=== PATIENT | female | born 1955 | race Caucasian/White ===

== ENCOUNTER 2021-03-08 08:06 | Outpatient (CLI) | payer MEDICARE | END 2021-03-08 08:07 | disposition home or self-care (01) | LOC: CSHMAMMO 08:06 | PROVIDERS: ATTEND Family Medicine | DX: Z12.31 Encounter for screening mammogram for malignant neoplasm of breast (principal) | CPT/HCPCS: 77063; 77067 ==

== ENCOUNTER 2022-08-22 11:42 | Outpatient (CLI) | payer MEDICARE | END 2022-08-22 11:43 | disposition home or self-care (01) | LOC: CSHLAB 11:42 | PROVIDERS: ATTEND Specialist | DX: Z20.822 Contact with and (suspected) exposure to COVID-19 (principal) | CPT/HCPCS: 87811 ==

== ENCOUNTER 2023-04-03 08:04 | Outpatient (CLI) | payer MEDICARE | END 2023-04-03 08:05 | disposition home or self-care (01) | LOC: CSHMAMMO 08:04 | PROVIDERS: ATTEND Family Medicine | DX: Z12.31 Encounter for screening mammogram for malignant neoplasm of breast (principal) | CPT/HCPCS: 77063; 77067 ==

== ENCOUNTER 2024-02-08 12:55 | Emergency (ER) | payer MEDICARE ==
[2024-02-08 14:06] LABS: #Basophils 0.1 10x3/uL (0.0-0.2); #Eosinphils 0.4 10x3/uL (0.0-0.5); #Monocytes 0.7 10x3/uL (0.0-1.1); #Neutrophils 5.1 10x3/uL (1.5-8.4); %Basophils 0.8 % (0.0-2.0); %Eosinophils 4.7 % (0.0-6.0); %Lymphocytes 20.1 % (18.0-47.0); %Monocytes 8.8 % (0.0-10.0); %Neutrophils 65.3 % (40.0-75.0); Hematocrit 41.7 % (34.9-44.5); Hemoglobin 13.8 g/dL (12.0-15.5); Mean Corpuscular HGB CONC 33.1 g/dL (32.0-36.0); Mean Corpuscular Hemoglobin 30.3 pg (27.0-33.0); Mean Corpuscular Volume 91.6 fl (81.6-98.3); Platelet Count 298 10x3/uL (150-450); Red Blood Cell (RBC) Count 4.55 10x6/uL (3.90-5.03); White Blood Cell (WBC) Count 7.7 10x3/uL (3.5-10.5)
[2024-02-08 14:27] LABS: ALT (SGPT) 21 U/L (8-55); AST (SGOT) 22 U/L (5-34); Albumin 4.1 g/dL (3.4-4.8); Alkaline Phosphatase 75 U/L (40-110); Anion Gap 16 mmol/L (10-20); BUN (Urea Nitrogen) 18 mg/dL (9.8-20.1); Bilirubin, Total 1.2 mg/dL (0.2-1.2); Calc. Creatinine Clearance 0 mL/min (70-130); Calcium 9.9 mg/dL (7.8-10.44); Carbon Dioxide 27 mmol/L (23-31); Chloride 100 mmol/L (98-107); Estimated GFR 70; Globulin 2.9 g/dL (2.4-3.5); Glucose 108 mg/dL (80-115); Magnesium 1.9 mg/dL (1.6-2.6); Potassium 4.6 mmol/L (3.5-5.1); Sodium 138 mmol/L (136-145)
[2024-02-08 14:33] LABS: Troponin I Less than 0.010 ng/mL (< 0.028)
== END 2024-02-08 15:02 | disposition home or self-care (01) ==
LOC: CSHERS 12:55
DX: I48.0 Paroxysmal atrial fibrillation (principal); E11.9 Type 2 diabetes mellitus without complications; I10 Essential (primary) hypertension; Z55.6 Problems related to health literacy; Z79.899 Other long term (current) drug therapy; Z79.01 Long term (current) use of anticoagulants
CPT/HCPCS: 36415; 71045; 80053; 83735; 84484; 85025; 93005; 93010

== ENCOUNTER 2024-04-23 08:15 | Outpatient (CLI) | payer MEDICARE | END 2024-04-23 08:16 | disposition home or self-care (01) | LOC: CSHMAMMO 08:15 | PROVIDERS: ATTEND Family Medicine | DX: Z12.31 Encounter for screening mammogram for malignant neoplasm of breast (principal) | CPT/HCPCS: 77063; 77067 ==

== ENCOUNTER 2024-06-25 09:50 | Outpatient (CLI) | payer MEDICARE | END 2024-06-25 09:51 | disposition home or self-care (01) | LOC: CSHMAMMO 09:50 | PROVIDERS: ATTEND Family Medicine | DX: Z13.820 Encounter for screening for osteoporosis (principal); N95.8 Other specified menopausal and perimenopausal disorders | CPT/HCPCS: 77080 ==

== ENCOUNTER 2024-08-18 08:26 | Outpatient (CLI) | payer MEDICARE ==
[2024-08-18] MEDS ORDERED: Iopamidol 300 61% 100 ML VIAL FS ONE (11:29)
== END 2024-08-18 08:27 | disposition home or self-care (01) ==
LOC: CSHCT 08:26
PROVIDERS: ATTEND Family Medicine
DX: E83.52 Hypercalcemia (principal); K14.8 Other diseases of tongue
CPT/HCPCS: 36415; 70492; 82565

== ENCOUNTER 2024-12-22 07:06 | Outpatient (CLI) | payer MEDICARE ==
[2024-12-22] MEDS ORDERED: Iopamidol 300 61% 100 ML VIAL FS ONE (09:49)
== END 2024-12-22 07:07 | disposition home or self-care (01) ==
LOC: CSHCT 07:06
PROVIDERS: ATTEND Family Medicine
DX: R22.2 Localized swelling, mass and lump, trunk (principal); K80.20 Calculus of gallbladder without cholecystitis without obstruction
CPT/HCPCS: 36415; 71270; 82565